=== PATIENT | female | born 1955 | race Caucasian/White ===

== ENCOUNTER 2017-10-19 06:20 | Emergency (ER) | payer OTHER ==
[~2017-10-19] VITALS: Ht 172.7 cm; Wt 68.9 kg
[2017-10-19] MEDS ORDERED: OMEP10CA4 PO (06:34)
[2017-10-19] MEDS ORDERED: ASPIRIN 325 MG (5 GR) TABLET PO STA (06:37)
[2017-10-19] MEDS ORDERED: KETOROLAC 30 MG/ML VIAL IVP STA (06:37)
[2017-10-19] MEDS ORDERED: NS IV 1000 ML 1,000 ML IV ONE (06:37)
--- NOTE | 2017-10-19 07:03 | ED Abdominal Pain ---
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 2100 10/18/17 worse after drinking water. Sepsis Screen: No Definite Risk Source of Information: Patient Exam Limitations: No Limitations History of Present Illness Date Seen by Provider: Oct 19, 2017 Time Seen by Provider: 06:35 Initial Comments Here by EMS with report of left upper abdominal pain and left low chest wall pain. She points to the area of the lower ribs. States the pain is worse when drinking water and taking a deep breath and better with rest. Does have history of pulmonary embolism on the right side that was in August almost 2 months ago. She was on blood thinners for a month and then was taken off of him after the embolism was found to have been resolved. She tried taking additional reflux medicine and states that that has not helped her pain. Denies sweating, vomiting, weakness or dizziness. Timing/Duration: 12 Hours Severity/Quality: Mild, Moderate, Stabbing Location: LUQ, Other (left lower rib margin anterior) Radiation: No Radiation Activities at Onset: None Modifying Factors: Worsens With Eating Associated Symptoms: No Back Pain, Chest Pain, No Fever/Chills, No Nausea/ Vomiting, No Shortness of Air, No Weakness Allergies and Home Medications Allergies Coded Allergies: No Known Drug Allergies (Unverified , 10/19/17) Home Medications Omeprazole 10 Mg Capsule.dr, Unknown Dose PO, (Reported) Review of Systems Constitutional: see HPI EENTM: No Symptoms Reported Respiratory: No Symptoms Reported Cardiovascular: See HPI, Denies Edema, Denies Lightheadedness Gastrointestinal: No Symptoms Reported Genitourinary: No Symptoms Reported Musculoskeletal: no symptoms reported All Other Systems Reviewed Negative Unless Noted: Yes Past Srizrhz-Esvfus-Hjfhtc Hx Patient Social History Alcohol Use: Denies Use Recreational Drug Use: No Smoking Status: Never a Smoker 2nd Hand Smoke Exposure: Yes Recent Foreign Travel: No Contact w/Someone Who Travel: No Recent Infectious Disease Expo: No Recent Hopitalizations: No Seasonal Allergies Seasonal Allergies: No Surgeries History of Surgeries: Yes (henria repair) Surgeries: Adenoidectomy, Tonsillectomy Respiratory History of Respiratory Disorde: Yes Respiratory Disorders: Pulmonary Embolism Cardiovascular History of Cardiac Disorders: No Neurological History of Neurological Disord: No Reproductive System : No [employer] History: Menopausal Genitourinary History of Genitourinary Disor: No Gastrointestinal History of Gastrointestinal Di: No Musculoskeletal History of Musculoskeletal Dis: No Endocrine History of Endocrine Disorders: No HEENT History of HEENT Disorders: No Cancer History of Cancer: No Psychosocial History of Psychiatric Problem: No Integumentary History of Skin or Integumenta: No Blood Transfusions History of Blood Disorders: No Reviewed Nursing Assessment Reviewed/Agree w Nursing PMH: Yes Family Medical History Significant Family History: No Pertinent Family Hx Physical Exam Vital Signs VS - Last 72 Hours, by Label 10/19/17 10/19/17 06:20 06:50 Temp 97.0 97.0 Pulse 84 Resp 18 B/P (MAP) 133/77 (95) Pulse Ox 98 O2 Delivery Room Air Capillary Refill : Less Than 3 Seconds General Appearance: WD/WN, no apparent distress HEENT: PERRL/EOMI, pharynx normal Neck: full range of motion, supple Respiratory: lungs clear, normal breath sounds Cardiovascular: regular rate, rhythm, no murmur Gastrointestinal: soft, tenderness (mild tenderness to the left upper quadrant and left low rib margin) Extremities: non-tender, normal inspection Back: normal inspection, no CVA tenderness, no vertebral tenderness Neurologic/Psychiatric: alert, oriented x 3 Skin: normal color, warm/dry Progress/Results/Core Measures Results/Orders Lab Results Laboratory Tests Test 10/19/17 06:45 Range/Units White Blood Count 8.5 4.3-11.0 10^3/uL Red Blood Count 3.99 L 4.35-5.85 10^6/uL Hemoglobin 12.6 11.5-16.0 G/DL Hematocrit 36 35-52 % Mean Corpuscular Volume 91 80-99 FL Mean Corpuscular Hemoglobin 32 25-34 PG Mean Corpuscular Hemoglobin Concent 35 32-36 G/DL Red Cell Distribution Width 13.3 10.0-14.5 % Platelet Count 331 130-400 10^3/uL Mean Platelet Volume 10.9 H 7.4-10.4 FL Neutrophils (%) (Auto) 56 42-75 % Lymphocytes (%) (Auto) 32 12-44 % Monocytes (%) (Auto) 7 0-12 % Eosinophils (%) (Auto) 4 0-10 % Basophils (%) (Auto) 1 0-10 % Neutrophils # (Auto) 4.8 1.8-7.8 X 10^3 Lymphocytes # (Auto) 2.7 1.0-4.0 X 10^3 Monocytes # (Auto) 0.6 0.0-1.0 X 10^3 Eosinophils # (Auto) 0.4 H 0.0-0.3 10^3/uL Basophils # (Auto) 0.1 0.0-0.1 10^3/uL D-Dimer 0.28 0.00-0.49 UG/ML Sodium Level 142 135-145 MMOL/L Potassium Level 3.3 L 3.6-5.0 MMOL/L Chloride Level 108 H 98-107 MMOL/L Carbon Dioxide Level 23 21-32 MMOL/L Anion Gap 11 5-14 MMOL/L Blood Urea Nitrogen 12 7-18 MG/DL Creatinine 0.77 0.60-1.30 MG/DL Estimat Glomerular Filtration Rate > 60 BUN/Creatinine Ratio 16 Glucose Level 106 H 70-105 MG/DL Calcium Level 9.7 8.5-10.1 MG/DL Total Bilirubin 0.6 0.1-1.0 MG/DL Aspartate Amino Transf (AST/SGOT) 19 5-34 U/L Alanine Aminotransferase (ALT/SGPT) 14 0-55 U/L Alkaline Phosphatase 74 40-136 U/L Troponin I < 0.30 <0.30 NG/ML Total Protein 6.8 6.4-8.2 GM/DL Albumin 4.1 3.2-4.5 GM/DL Amylase Level 27 25-125 U/L Lipase 18 8-78 U/L My Orders Orders - GRUPO DEL RIO MD Amylase (10/19/17 06:37) Cbc With Automated Diff (10/19/17 06:37) Comprehensive Metabolic Panel (10/19/17 06:37) Fibrin Degradation Products (10/19/17 06:37) Lipase (10/19/17 06:37) Troponin I (10/19/17 06:37) Chest Pa/Lat (2 View) (10/19/17 06:37) Saline Lock/Iv-Start (10/19/17 06:37) Ns Iv 1000 Ml (Sodium Chloride 0.9%) (10/19/17 06:37) Aspirin Tablet (Aspirin Tablet) (10/19/17 06:37) Ketorolac Injection (Toradol Injection) (10/19/17 06:37) Ekg Tracing (10/19/17 06:37) Lidocaine 2% Viscous 15 Ml (Xylocaine Vi (10/19/17 08:00) Antacid Suspension (Mylanta Suspension (10/19/17 08:00) Medications Given in ED Current Medications Medications Dose Ordered Sig/Ariella Route Start Time Stop Time Status Last Admin Dose Admin Al Hydrox/Mg Hydrox/Simethicone 30 ml ONCE ONCE PO 10/19/17 08:00 10/19/17 08:01 DC 10/19/17 07:54 30 ML Lidocaine HCl 15 ml ONCE ONCE PO 10/19/17 08:00 10/19/17 08:01 DC 10/19/17 07:53 15 ML Sodium Chloride 1,000 ml @ 0 mls/hr Q0M ONCE IV 10/19/17 06:37 10/19/17 06:41 DC 10/19/17 06:51 0 MLS/HR Vital Signs/I&O Vital Sign - Last 12Hours 10/19/17 10/19/17 06:20 06:50 Temp 97.0 97.0 Pulse 84 Resp 18 B/P (MAP) 133/77 (95) Pulse Ox 98 O2 Delivery Room Air Blood Pressure Mean: 95 Progress Note : Progress Note Seen and evaluated. IV, labs, chest x-ray and EKG ordered. Due to symptoms both of low chest wall and upper abdominal pain, we will evaluate for heart- related issues and give aspirin 324 mg here. Toradol 30 mg IV for pain and normal saline 1 L bolus ordered. D-dimer ordered given history of blood clots. Monitor patient. 0814: Patient was given GI cocktail after labs and chest x- ray did not show any significant findings. This did improve her symptoms. She does have stomach problems and will see her doctor on Saturday. Discharged home with return precautions. Patient verbalize understanding instructions and agreement with plan. ECG Initial ECG Impression Date: Oct 19, 2017 Initial ECG Impression Time: 06:53 Initial ECG Rate: 65 Initial ECG Rhythm: Normal Sinus Comment Sinus rhythm with first degree AV block. Normal axis. No evidence of ST elevation [place]. No previous available for comparison. Interpreted by me. Diagnostic Imaging Diagonstic Imaging: Xray Plain Films/CT/US/NM/MRI: chest Comments VIA [facility]. [place], [place] NAME: KIET GODFREY [facility] REC#: [id number] PT STATUS: REG ER : 1955 PHYSICIAN: GRUPO DEL RIO MD ADMIT DATE: 10/19/17/ER Draft Date of Exam:10/19/17 CHEST PA/LAT (2 VIEW) EXAM: CHEST PA/LAT (2 VIEW) INDICATION: Abdominal pain. COMPARISON: None. FINDINGS: Normal heart size and pulmonary vascularity. No focal pulmonary opacity, pleural effusion or pneumothorax. Osseous structures are unremarkable. IMPRESSION: Negative chest. Dictated on workstation # [id number] Dict: 10/19/17721 Trans: 10/19/17723 [facility] [id number] Interpreted by: NICKY QUINONEZ MD Electronically signed by: Departure Impression Impression: Primary Impression: Abdominal pain, left upper quadrant Disposition: 01 HOME, SELF-CARE Condition: Stable Departure-Patient Inst. Decision time for Depature: 08:15 Referrals: NO,LOCAL PHYSICIAN (PCP/Family) Primary Care Physician Patient Instructions: Acute Abdomen (Belly Pain), Adult (DC), Chest Pain (DC) Add. Discharge Instructions: All discharge instructions reviewed with patient and/or family. Voiced understanding. Take medications as previously prescribed. Follow-up with your doctor on Saturday as discussed to further evaluate the stomach problem. Return for worse pain, fever, vomiting, weakness, breathing problems or other concerns as needed. GRUPO DEL RIO MD Oct 19, 2017 07:03
[2017-10-19 07:09] LABS: BASOPHILS # (AUTO) 0.1 10^3/uL (0.0-0.1); BASOPHILS % (AUTO) 1 % (0-10); EOSINOPHILS # (AUTO) 0.4 10^3/uL (0.0-0.3); EOSINOPHILS % (AUTO) 4 % (0-10); HEMATOCRIT 36 % (35-52); HEMOGLOBIN 12.6 G/DL (11.5-16.0); LYMPHOCYTES # (AUTO) 2.7 X 10^3 (1.0-4.0); LYMPHOCYTES % (AUTO) 32 % (12-44); MEAN CORPUSCULAR HEMOGLOBIN 32 PG (25-34); MEAN CORPUSCULAR HGB CONC 35 G/DL (32-36); MEAN CORPUSCULAR VOLUME 91 FL (80-99); MEAN PLATELET VOLUME 10.9 FL (7.4-10.4); MONOCYTES # (AUTO) 0.6 X 10^3 (0.0-1.0); MONOCYTES % (AUTO) 7 % (0-12); NEUTROPHILS # (AUTO) 4.8 X 10^3 (1.8-7.8); NEUTROPHILS % (AUTO) 56 % (42-75); PLATELET COUNT 331 10^3/uL (130-400); RED BLOOD COUNT 3.99 10^6/uL (4.35-5.85); RED CELL DISTRIBUTION WIDTH 13.3 % (10.0-14.5); WHITE BLOOD COUNT 8.5 10^3/uL (4.3-11.0)
--- NOTE | 2017-10-19 07:25 | Diagnostic Imaging Report ---
EXAM: CHEST PA/LAT (2 VIEW) INDICATION: Abdominal pain. COMPARISON: None. FINDINGS: Normal heart size and pulmonary vascularity. No focal pulmonary opacity, pleural effusion or pneumothorax. Osseous structures are unremarkable. IMPRESSION: Negative chest. Dictated by: Dictated on workstation # [id number]
[2017-10-19 07:32] LABS: ALANINE AMINOTRANSFERASE 14 U/L (0-55); ALBUMIN 4.1 GM/DL (3.2-4.5); ALKALINE PHOSPHATASE 74 U/L (40-136); AMYLASE 27 U/L (25-125); BILIRUBIN,TOTAL 0.6 MG/DL (0.1-1.0); BUN/CREATININE RATIO 16; CALCIUM 9.7 MG/DL (8.5-10.1); CARBON DIOXIDE 23 MMOL/L (21-32); CHLORIDE 108 MMOL/L (98-107); CREATININE SERUM 0.77 MG/DL (0.60-1.30); GFR ESTIMATED > 60; GLUCOSE 106 MG/DL (70-105); LIPASE 18 U/L (8-78); POTASSIUM 3.3 MMOL/L (3.6-5.0); SODIUM 142 MMOL/L (135-145); TOTAL PROTEIN 6.8 GM/DL (6.4-8.2)
[2017-10-19] MEDS ORDERED: ANTACID SUSP 30 ML UDC (MYLANTA) PO ONE (08:00)
[2017-10-19] MEDS ORDERED: LIDOCAINE 2% VISCOUS 15 ML UDC PO ONE (08:00)
[2017-10-19 08:23] VITALS: BP 126/81
== END 2017-10-19 08:22 | disposition home or self-care (01) ==
LOC: ER 06:22
DX: R10.12 Left upper quadrant pain (principal); Z77.22 Contact with and (suspected) exposure to environmental tobacco smoke (acute) (chronic); Z86.711 Personal history of pulmonary embolism; Z90.89 Acquired absence of other organs
CPT/HCPCS: 36415; 71046; 80053; 82150; 83690; 84484; 85025; 85379; 93005; 96361; 96374